=== PATIENT | male | born 1990 | race Caucasian/White ===

== ENCOUNTER 2018-03-07 15:17 | Inpatient (IN) | payer MEDICAID | END 2018-03-11 14:20 | disposition home or self-care (01) | LOC: ER 15:17 → ED HOLD 20:49 → ORTHO 4S 21:46 ==

== ENCOUNTER 2018-09-13 20:53 | Emergency (ER) | payer MEDICAID ==
[~2018-09-13] VITALS: Ht 182.9 cm; Wt 54.9 kg
[~2018-09-13 20:53] MED LIST: ALB0.5UD IH; ALBU18HF2 INH; FLUT1DIS4 INH; QUET25TA34 PO
[2018-09-13 21:22] VITALS: BP 100/74
[2018-09-13] MEDS ORDERED: LIDOcaine 5% patch TP STA (23:37)
[2018-09-13] MEDS ORDERED: ketorolac tromethamine 15mg/ml inj. IM ONE (23:40)
== END 2018-09-14 | disposition home or self-care (01) ==
LOC: ER 20:54
DX: M54.5 Low back pain (principal); J45.909 Unspecified asthma, uncomplicated; F12.90 Cannabis use, unspecified, uncomplicated; F10.99 Alcohol use, unspecified with unspecified alcohol-induced disorder; Z79.899 Other long term (current) drug therapy; Y90.9 Presence of alcohol in blood, level not specified
CPT/HCPCS: 96372; 99283; J1885

== ENCOUNTER 2018-10-06 14:45 | Emergency (ER) | payer MEDICAID, OTHER ==
[~2018-10-06] VITALS: Ht 195.6 cm; Wt 84.1 kg
[~2018-10-06 14:45] MED LIST changes: -ALB0.5UD IH
[2018-10-06] MEDS ORDERED: predniSONE 20 mg tablet PO ONE (14:55)
[2018-10-06] MEDS ORDERED: FLUT1BLS13 INH (15:35)
[2018-10-06] MEDS ORDERED: ALBU2.5V13 NEB (15:35)
[2018-10-06] MEDS ORDERED: ALBU8.5H8 IH (15:35)
[2018-10-06] MEDS ORDERED: PRED20TA PO (15:35)
[2018-10-06 15:41] VITALS: BP 108/50
== END 2018-10-06 15:52 | disposition home or self-care (01) ==
LOC: ER 14:46
DX: J45.901 Unspecified asthma with (acute) exacerbation (principal); F12.90 Cannabis use, unspecified, uncomplicated; Z79.899 Other long term (current) drug therapy
CPT/HCPCS: 99283; J7512

== ENCOUNTER 2018-10-28 01:26 | Emergency (ER) | payer SELFPAY ==
[~2018-10-28] VITALS: Ht 195.6 cm; Wt 78.0 kg
[~2018-10-28 01:26] MED LIST changes: +ALBU2.5V13 NEB; +ALBU8.5H8 IH; +FLUT1BLS13 INH
[2018-10-28] MEDS ORDERED: methylPREDNISolone sod succ 125mg/2ml vial IV ONE (01:35)
[2018-10-28] MEDS ORDERED: albuterol 2.5 MG/3 ML nebule NEB ONE ×2 (01:40→03:20)
--- NOTE | 2018-10-28 01:42 | NUR ---
VERBAL ORDER RECEIVED FOR SOLUMEDROL AND ALBUTEROL TX FROM MD TINOCO.
--- NOTE | 2018-10-28 02:16 | NUR ---
PT IS ANXIOUS TO LEAVE AND REPORTS HE FEELS MUCH BETTER. LUNGS ARE CLEAR. PT STILL AWAITING TO SEE DR. TINOCO. PT HAS HAD BREATHING TREATMENT ALREADY AND RT REPORTS HE IS MUCH IMPROVED. PT REPORTS HE "HATES THE IV" "IT FREAKS ME OUT" HE REQUESTED FOR ME TO TAKE IT OUT AND THAT HE WOULD BE FINE WIHT US PLACING ANOTHER ONE IF NEEDED. I TOOK THE IV OUT AND UPDATED HIM ON THE [facility] DELAY. HE IS FINE NOW TO STAY.
--- NOTE | 2018-10-28 02:57 | NUR ---
dr. olguin talking with Pt now.
[2018-10-28 03:11] VITALS: BP 133/71
[2018-10-28] MEDS ORDERED: budesonide 0.5mg/2ml UD nebule IH ONE (03:20)
--- NOTE | 2018-10-28 03:39 | NUR ---
RT at bedside to give 2nd neb treatment
[2018-10-28] MEDS ORDERED: dexamethasone 4mg tablet PO ONE (04:35)
[2018-10-28] MEDS ORDERED: FLUT1BLS10 INH (04:37)
[2018-10-28] MEDS ORDERED: ALBU2.5V12 NEB (04:37)
[2018-10-28] MEDS ORDERED: ALBU8.5H8 IH (04:37)
--- NOTE | 2018-10-28 04:43 | NUR ---
CALLED [facility] AT 4:43 FOR PT RIDE HOME. ETA 20-30 MINS
== END 2018-10-28 04:45 | disposition home or self-care (01) ==
LOC: ER 01:27
DX: J45.909 Unspecified asthma, uncomplicated (principal); F17.200 Nicotine dependence, unspecified, uncomplicated; F12.90 Cannabis use, unspecified, uncomplicated; F10.99 Alcohol use, unspecified with unspecified alcohol-induced disorder; F41.9 Anxiety disorder, unspecified; Z79.899 Other long term (current) drug therapy; Y90.9 Presence of alcohol in blood, level not specified
CPT/HCPCS: 94640; 94760; 96374; 99284; J2930; J8540; J7626

== ENCOUNTER 2018-12-01 11:50 | Emergency (ER) | payer MEDICAID, OTHER ==
[~2018-12-01] VITALS: Ht 195.6 cm; Wt 74.0 kg
[~2018-12-01 11:50] MED LIST changes: +ALBU2.5V12 NEB; +FLUT1BLS10 INH
[2018-12-01] MEDS ORDERED: predniSONE 20 mg tablet PO ONE (12:20)
[2018-12-01] MEDS ORDERED: albuterol 2.5 MG/3 ML nebule NEB ONE (12:20)
[2018-12-01] MEDS ORDERED: FLUT1DIS4 INH (12:24)
[2018-12-01] MEDS ORDERED: ALBU8.5H8 IH (12:24)
[2018-12-01] MEDS ORDERED: ALBU2.5V12 NEB (12:24)
[2018-12-01 12:40] VITALS: BP 127/76
--- NOTE | 2018-12-01 12:49 | NUR ---
RT AT BEDSIDE
== END 2018-12-01 13:40 | disposition home or self-care (01) ==
LOC: ER 11:51
DX: J45.901 Unspecified asthma with (acute) exacerbation (principal); R06.03 Acute respiratory distress; F17.200 Nicotine dependence, unspecified, uncomplicated; F12.90 Cannabis use, unspecified, uncomplicated; F10.99 Alcohol use, unspecified with unspecified alcohol-induced disorder; Z79.899 Other long term (current) drug therapy; Y90.9 Presence of alcohol in blood, level not specified
CPT/HCPCS: 94640; 99283; J7512

== ENCOUNTER 2018-12-22 06:22 | Inpatient (IN) | payer MEDICAID, OTHER ==
[~2018-12-22] VITALS: Ht 195.6 cm; Wt 77.3 kg
[2018-12-22] MEDS ORDERED: acetaminophen 325mg tablet PO STA (06:38)
[2018-12-22] MEDS ORDERED: normal saline 1000ML IV soln IV ONE (06:40)
[2018-12-22] MEDS ORDERED: methylPREDNISolone sod succ 125mg/2ml vial IV ONE (06:40)
[2018-12-22] MEDS ORDERED: CefTRIAXone 2gm/D5W 50ml 50 ML IV ONE (06:40)
[2018-12-22] MEDS ORDERED: ipratropium/albuterol 3ml nebule NEB ONE (06:40)
[2018-12-22 07:05] LABS: BASOPHILS # (AUTO) 0.1 X10'3 (0-0.2); BASOPHILS % (AUTO) 0.5 % (0-1); EOSINOPHILS # (AUTO) 0.3 X10'3 (0-0.9); EOSINOPHILS % (AUTO) 2.2 % (0-6); LYMPHOCYTES # (AUTO) 1.1 X10'3 (1.1-4.8); LYMPHOCYTES % (AUTO) 7.1 % (21-51); MEAN CORPUSCULAR HEMOGLOBIN 29.5 PG (27.0-31.0); MEAN CORPUSCULAR HGB CONC 34.1 g/dL (33.0-36.5); MEAN CORPUSCULAR VOLUME 86.6 FL (78-98); MEAN PLATELET VOLUME 8.2 FL (7.4-10.4); MONOCYTES # (AUTO) 0.7 X10'3 (0-0.9); MONOCYTES % (AUTO) 4.7 % (2-12); NEUTROPHILS % (AUTO) 85.5 % (42-75); PLATELET COUNT 260 X10'3 (140-440); RED BLOOD COUNT 5.42 X10'6 (4.70-6.10); RED CELL DISTRIBUTION WIDTH 13.9 % (11.5-14.5); WHITE BLOOD COUNT 15.3 X10'3 (4.5-11.0)
[2018-12-22 07:30] LABS: ALANINE AMINOTRANSFERASE 29 U/L (12-78); ALBUMIN 4.3 G/DL (3.4-5.0); ALKALINE PHOSPHATASE 70 IU/L (46-116); ANION GAP 6 (8-16); ASPARTATE AMINO TRANSFERASE 20 U/L (10-37); BILIRUBIN,TOTAL 0.6 MG/DL (0.1-1.0); BLOOD UREA NITROGEN 13 MG/DL (7-18); BUN/CREATININE RATIO 11.1 (5.4-32.0); CHLORIDE 103 MMOL/L (99-107); CREATININE 1.17 MG/DL (0.60-1.10); GLUCOSE 101 MG/DL (70-104); MAGNESIUM 1.9 MG/DL (1.5-2.4); POTASSIUM 5.2 MMOL/L (3.5-5.1); SODIUM 139 MMOL/L (135-145); TOTAL CARBON DIOXIDE 30.1 MMOL/L (24-32); TOTAL PROTEIN 8.5 G/DL (6.4-8.2); eGFR 75 ML/MIN
[2018-12-22] MEDS ORDERED: normal saline 1000ml 1,000 ML IV SCH (08:20)
[2018-12-22] MEDS ORDERED: magnesium 4gm in 100ml NS 100 ML IV PRN (08:20)
[2018-12-22] MEDS ORDERED: ipratropium/albuterol 3ml nebule NEB PRN (08:20)
[2018-12-22] MEDS ORDERED: acetaminophen 325mg tablet PO PRN (08:20)
[2018-12-22] MEDS ORDERED: potassium Cl 20 mEq SR tablet PO PRN ×2 (08:20)
[2018-12-22] MEDS ORDERED: ondansetron/PF 4mg/2ml inj IV PRN (08:20)
[2018-12-22] MEDS ORDERED: potassium CL 10mEq/100ml bag 100 ML IV PRN ×2 (08:20)
[2018-12-22] MEDS ORDERED: magnesium Cl slow-release 64mg tablet PO PRN (08:20)
[2018-12-22] MEDS ORDERED: magnesium 2GM in 50ml NS 50 ML IV PRN (08:20)
[2018-12-22] MEDS ORDERED: albuterol 2.5 MG/3 ML nebule CONTNEB PRN (08:25)
--- NOTE | 2018-12-22 08:46 | NUR ---
PATIENT BREATHING EASIER NOW. EATING SANDWICH AND DRINKING FLUIDS WELL. IV PATENT AND INFUSING WELL. CONTINUOUS NEB STARTED PER RT.
[2018-12-22] MEDS ORDERED: azithromycin 250mg tablet PO SCH (09:00)
--- NOTE | 2018-12-22 09:45 | NUR ---
SECOND ATTEMPT TO CALL REPORT TO SURGICAL UNIT. REPORT TO YOGI CHAKRABORTY.
--- NOTE | 2018-12-22 10:00 | NUR ---
Patient in room [facility]. I have received report from Croeen CALIX and had the opportunity to ask questions and assume patient care.
[2018-12-22 10:32] VITALS: BP 118/61
[2018-12-22] MEDS ORDERED: ipratropium/albuterol 3ml nebule NEB SCH (14:00)
[2018-12-22] MEDS ORDERED: AZI25OT PO (14:52)
[2018-12-22] MEDS ORDERED: IPRA3AMP9 NEB (14:52)
--- NOTE | 2018-12-22 19:12 | NUR ---
Patient discharge with new additions to medication list. patient verbally educated and expressed understanding. Patient discharged to his own care. IV taken out at this time. Patient site showed some bleeding and was redressed before leaving. Canula was whole and intact upon discharge. Patient left with all belongings at this time.
[2018-12-22] MEDS ORDERED: lactobacillus rhamnosus 10,000 MMU CELLS/CAPSULE PO SCH (20:00)
[2018-12-22] MEDS ORDERED: methylPREDNISolone sod succ/PF 40mg inj. IV SCH (20:00)
[2018-12-22] MEDS ORDERED: heparin, porcine 5000 units/ml vial SQ SCH (20:00)
[2018-12-23] MEDS ORDERED: CefTRIAXone/D5W-Rocephin 1gm 50 ML IV SCH (08:00)
[2018-12-23] MEDS ORDERED: K and/or MAG REPLACEMENT MC SCH (08:00)
== END 2018-12-22 16:20 | disposition home or self-care (01) | DRG 133 ==
LOC: ER 06:23 → ED HOLD 08:20 → SUR 3N 10:31
PROVIDERS: ADMIT Internal Medicine; ATTEND Internal Medicine
DX: J96.01 Acute respiratory failure with hypoxia (principal); F12.90 Cannabis use, unspecified, uncomplicated; F17.200 Nicotine dependence, unspecified, uncomplicated; F31.9 Bipolar disorder, unspecified; Z60.2 Problems related to living alone; Z79.899 Other long term (current) drug therapy
CPT/HCPCS: 36415; 71045; 80053; 83605; 83735; 84145; 85025; 87040; 93005; 94640; 94760; 96365; 96375; 99291; G0378; J0696; J2930

== ENCOUNTER 2019-01-05 17:10 | Emergency (ER) | payer MEDICAID, OTHER ==
[~2019-01-05] VITALS: Ht 195.6 cm; Wt 78.2 kg
[~2019-01-05 17:10] MED LIST changes: -ALBU18HF2 INH; -ALBU2.5V12 NEB; -ALBU8.5H8 IH; +AZI25OT PO; -FLUT1BLS10 INH; -FLUT1BLS13 INH; -FLUT1DIS4 INH; +IPRA3AMP9 NEB; -QUET25TA34 PO
[2019-01-05 17:31] VITALS: BP 110/63
[2019-01-05] MEDS ORDERED: ALB0.5UD IH (17:49)
== END 2019-01-05 18:04 | disposition home or self-care (01) ==
LOC: ER 17:11
DX: J44.9 Chronic obstructive pulmonary disease, unspecified (principal); Z76.0 Encounter for issue of repeat prescription; F31.9 Bipolar disorder, unspecified; F12.90 Cannabis use, unspecified, uncomplicated; F17.200 Nicotine dependence, unspecified, uncomplicated; Z88.2 Allergy status to sulfonamides
CPT/HCPCS: 99283

== ENCOUNTER 2019-01-13 03:31 | Emergency (ER) | payer OTHER ==
[~2019-01-13] VITALS: Ht 195.6 cm; Wt 78.2 kg
[~2019-01-13 03:31] MED LIST changes: +ALB0.5UD IH
[2019-01-13] MEDS ORDERED: ipratropium/albuterol 3ml nebule NEB ONE (03:40)
[2019-01-13] MEDS ORDERED: predniSONE 20 mg tablet PO ONE (03:40)
[2019-01-13] MEDS ORDERED: ALB0.5UD IH (03:43)
[2019-01-13] MEDS ORDERED: PRED20TA PO (03:43)
[2019-01-13 04:07] VITALS: BP 111/55
== END 2019-01-13 04:05 | disposition home or self-care (01) ==
LOC: ER 03:32
DX: J45.901 Unspecified asthma with (acute) exacerbation (principal); Z76.0 Encounter for issue of repeat prescription; F12.90 Cannabis use, unspecified, uncomplicated; F17.200 Nicotine dependence, unspecified, uncomplicated; Z79.899 Other long term (current) drug therapy; Z88.2 Allergy status to sulfonamides
CPT/HCPCS: 94640; 94760; 99283; J7512

== ENCOUNTER 2019-01-26 09:20 | Emergency (ER) | payer OTHER ==
[~2019-01-26] VITALS: Ht 195.6 cm; Wt 85.0 kg
[~2019-01-26 09:20] MED LIST changes: -ALB0.5UD IH
[2019-01-26 09:23] VITALS: BP 99/56
[2019-01-26] MEDS ORDERED: ipratropium/albuterol 3ml nebule NEB ONE (09:35)
[2019-01-26] MEDS ORDERED: ALB0.5UD IH (09:38)
[2019-01-26] MEDS ORDERED: triamcinolone acetonide 40mg/ml inj IM ONE (09:40)
[2019-01-26] MEDS ORDERED: dexamethasone 4mg tablet PO ONE (09:40)
== END 2019-01-26 10:29 | disposition home or self-care (01) ==
LOC: ER 09:21
DX: J44.9 Chronic obstructive pulmonary disease, unspecified (principal); F31.9 Bipolar disorder, unspecified; F12.90 Cannabis use, unspecified, uncomplicated; F10.99 Alcohol use, unspecified with unspecified alcohol-induced disorder; F17.200 Nicotine dependence, unspecified, uncomplicated; Z79.899 Other long term (current) drug therapy; Y90.9 Presence of alcohol in blood, level not specified
CPT/HCPCS: 94640; 96372; 99283; J3301; 94760

== ENCOUNTER 2019-02-05 10:03 | Emergency (ER) | payer MEDICAID, OTHER ==
[~2019-02-05] VITALS: Ht 195.6 cm; Wt 78.2 kg
[~2019-02-05 10:03] MED LIST changes: +ALB0.5UD IH
[2019-02-05] MEDS ORDERED: ALBU6.7H9 INH (11:51)
[2019-02-05] MEDS ORDERED: ALB0.5UD IH (12:09)
[2019-02-05 12:18] VITALS: BP 120/78
== END 2019-02-05 12:20 | disposition home or self-care (01) ==
LOC: ER 10:03
DX: J45.909 Unspecified asthma, uncomplicated (principal); F31.9 Bipolar disorder, unspecified; F12.90 Cannabis use, unspecified, uncomplicated; F10.99 Alcohol use, unspecified with unspecified alcohol-induced disorder; F17.200 Nicotine dependence, unspecified, uncomplicated; Z76.0 Encounter for issue of repeat prescription; Z60.2 Problems related to living alone; Z79.899 Other long term (current) drug therapy; Y90.9 Presence of alcohol in blood, level not specified
CPT/HCPCS: 99283

== ENCOUNTER 2019-02-21 08:57 | Emergency (ER) | payer MEDICAID, OTHER ==
[~2019-02-21] VITALS: Ht 195.6 cm; Wt 78.2 kg
[~2019-02-21 08:57] MED LIST changes: +ALBU6.7H9 INH
[2019-02-21] MEDS ORDERED: ALBU2.5V13 NEB (09:34)
[2019-02-21] MEDS ORDERED: ipratropium/albuterol 3ml nebule NEB ONE (09:35)
[2019-02-21 09:45] VITALS: BP 119/76
== END 2019-02-21 09:48 | disposition home or self-care (01) ==
LOC: ER 08:58
DX: J45.901 Unspecified asthma with (acute) exacerbation (principal); F12.90 Cannabis use, unspecified, uncomplicated; F31.9 Bipolar disorder, unspecified; F17.299 Nicotine dependence, other tobacco product, with unspecified nicotine-induced disorders; Z88.2 Allergy status to sulfonamides
CPT/HCPCS: 94640; 94760; 99283; 99406

== ENCOUNTER 2019-02-25 10:54 | Emergency (ER) | payer MEDICAID ==
[~2019-02-25] VITALS: Ht 195.6 cm; Wt 90.0 kg
[2019-02-25 11:04] VITALS: BP 108/25
[2019-02-25] MEDS ORDERED: ALBU6.7H9 INH (11:54)
== END 2019-02-25 12:02 | disposition home or self-care (01) ==
LOC: ER 10:55
DX: J45.909 Unspecified asthma, uncomplicated (principal); Z76.0 Encounter for issue of repeat prescription; F31.9 Bipolar disorder, unspecified; F12.90 Cannabis use, unspecified, uncomplicated; F17.200 Nicotine dependence, unspecified, uncomplicated; Z88.2 Allergy status to sulfonamides
CPT/HCPCS: 99283

== ENCOUNTER 2019-05-20 12:30 | Emergency (ER) | payer MEDICAID, OTHER ==
[~2019-05-20] VITALS: Ht 195.6 cm; Wt 78.1 kg
[~2019-05-20 12:30] MED LIST changes: -ALB0.5UD IH
[2019-05-20 12:34] VITALS: BP 103/58
[2019-05-20] MEDS ORDERED: ipratropium/albuterol 3ml nebule NEB ONE (12:40)
[2019-05-20] MEDS ORDERED: ALB0.5UD IH (13:05)
[2019-05-20] MEDS ORDERED: ALBU8HFA PO (13:05)
== END 2019-05-20 13:33 | disposition home or self-care (01) ==
LOC: ER 12:31
DX: J45.901 Unspecified asthma with (acute) exacerbation (principal); F31.9 Bipolar disorder, unspecified; F12.90 Cannabis use, unspecified, uncomplicated; Z60.2 Problems related to living alone; Z72.89 Other problems related to lifestyle; Z88.2 Allergy status to sulfonamides; Z79.2 Long term (current) use of antibiotics; Z79.899 Other long term (current) drug therapy
CPT/HCPCS: 94640; 94760; 99283

== ENCOUNTER 2019-08-07 00:21 | Emergency (ER) | payer OTHER ==
[~2019-08-07] VITALS: Ht 195.6 cm; Wt 79.5 kg
[2019-08-07 02:27] VITALS: BP 95/47
== END 2019-08-07 02:31 ==
LOC: ER 00:22
DX: S40.212A Abrasion of left shoulder, initial encounter (principal); J44.9 Chronic obstructive pulmonary disease, unspecified; F41.9 Anxiety disorder, unspecified; F31.9 Bipolar disorder, unspecified; F17.200 Nicotine dependence, unspecified, uncomplicated; F12.90 Cannabis use, unspecified, uncomplicated; Z72.89 Other problems related to lifestyle; Z60.2 Problems related to living alone; Z79.899 Other long term (current) drug therapy; V89.2XXA Person injured in unspecified motor-vehicle accident, traffic, initial encounter; Y93.89 Activity, other specified; Y92.89 Other specified places as the place of occurrence of the external cause; Y99.8 Other external cause status
CPT/HCPCS: 73030; 99283

== ENCOUNTER 2019-09-01 10:27 | Emergency (ER) | payer OTHER ==
[~2019-09-01] VITALS: Ht 195.6 cm; Wt 81.8 kg
[2019-09-01] MEDS ORDERED: PRED20TA PO (11:41)
[2019-09-01] MEDS ORDERED: ALBU8HFA PO (11:41)
[2019-09-01] MEDS ORDERED: dexamethasone sod phosphate 10mg/ml inj IM STA (11:49)
[2019-09-01] MEDS ORDERED: ipratropium/albuterol 3ml nebule NEB ONE (11:50)
[2019-09-01 12:20] VITALS: BP 114/76
== END 2019-09-01 12:22 | disposition home or self-care (01) ==
LOC: ER 10:28
DX: J45.901 Unspecified asthma with (acute) exacerbation (principal); F41.9 Anxiety disorder, unspecified; F31.9 Bipolar disorder, unspecified; F12.90 Cannabis use, unspecified, uncomplicated; Z60.2 Problems related to living alone; Z88.2 Allergy status to sulfonamides; Z79.2 Long term (current) use of antibiotics; Z79.899 Other long term (current) drug therapy
CPT/HCPCS: 94640; 96372; 99283; J1100; 94760